=== PATIENT | male | born 1970 | race American Indian/Alaskan Native ===

== ENCOUNTER 2021-08-08 09:54 | Emergency (ER) | payer SELFPAY ==
[2021-08-08 10:01] VITALS: BP 140/100
--- NOTE | 2021-08-08 11:01 | Emergency Department Report ---
ED Chest Pain HPI - General Chief Complaint: Upper Respiratory Infection Stated Complaint: CHEST PAIN/DEEP INHALATION Time Seen by Provider: 08/08/21 10:56 Source: patient Mode of arrival: Ambulatory Limitations: No Limitations - Related Data Allergies Allergy/AdvReac Type Severity Reaction Status Date / Time trapidil Allergy Unknown Verified 08/08/21 09:59 Heart Score - HEART Score History: Slightly suspicious EKG: Normal Age: < 45 Risk factors: No known risk factors Troponin: < normal limit HEART Score: 0 ED Review of Systems ROS: Stated complaint: CHEST PAIN/DEEP INHALATION Other details as noted in HPI Comment: All other systems reviewed and negative ED Past Medical Hx - Past Medical History Previous Medical History?: Yes Hx Psychiatric Treatment: Yes Additional medical history: HYPERACTIVE THYROID WITH IO RAD TX OFF MEDS - Surgical History Past Surgical History?: Yes Additional Surgical History: KNEE - Family History Family history: no significant - Social History Smoking Status: Current Every Day Smoker Substance Use Type: Alcohol ED Physical Exam - General Limitations: No Limitations General appearance: alert, in no apparent distress - Head Head exam: Present: atraumatic, normocephalic - Eye Eye exam: Present: normal appearance - ENT ENT exam: Present: mucous membranes moist - Neck Neck exam: Present: normal inspection - Respiratory Respiratory exam: Present: normal lung sounds bilaterally. Absent: respiratory distress - Cardiovascular Cardiovascular Exam: Present: regular rate, normal rhythm. Absent: systolic murmur, diastolic murmur, rubs, gallop - GI/Abdominal GI/Abdominal exam: Present: soft, normal bowel sounds - Rectal Rectal exam: Present: deferred - Extremities Exam Extremities exam: Present: normal inspection - Back Exam Back exam: Present: normal inspection - Neurological Exam Neurological exam: Present: alert, oriented X3 - Psychiatric Psychiatric exam: Present: normal affect, normal mood - Skin Skin exam: Present: warm, dry, intact, normal color. Absent: rash ED Course Vital Signs 08/08/21 08/08/21 09:59 12:19 Pulse Rate 80 Respiratory 18 18 Rate Blood Pressure 140/100 [Right] O2 Sat by Pulse 97 94 Oximetry BRADLEY score - Bradley Score Age > 65: (0) No Aspirin use within the Past 7 Days: (0) No 3 or more CAD Risk Factors: (0) No 2 or more Angina events in past 24 hrs: (0) No Known CAD with more than 50% Stenosis: (0) No Elevated Cardiac Markers: (0) No ST Deviation Greater than 0.5mm: (0) No BRADLEY Score: 0 ED Medical Decision Making - EKG Data EKG shows normal: sinus rhythm Rate: normal - EKG Data When compared to previous EKG there are: no significant change Interpretation: no acute changes - Radiology Data Radiology results: report reviewed, image reviewed - Medical Decision Making SEE DOWN TIME FORMS Vital Signs 08/08/21 08/08/21 09:59 12:19 Pulse Rate 80 Respiratory 18 18 Rate Blood Pressure 140/100 [Right] O2 Sat by Pulse 97 94 Oximetry - Differential Diagnosis THYROID DISEASE OFF MEDS; MED REFILL Critical care attestation.: If time is entered above; I have spent that time in minutes in the direct care of this critically ill patient, excluding procedure time. ED Disposition Clinical Impression: Non-adherence to medical treatment, History of hyperthyroidism, Medication refill Disposition: 01 HOME / SELF CARE / HOMELESS Is pt being admited?: No Does the pt Need Aspirin: No Condition: Stable Referrals: SHADI CRANDALL MD [Staff Physician] - 3-5 Days Time of Disposition: 14:31
--- NOTE | 2021-08-08 11:31 | XRay Report ---
CHEST 2 VIEWS INDICATION: cough. COMPARISON: None FINDINGS: Support devices: None. Heart: Borderline heart size. Lungs/pleura: Pulmonary vasculature appears slightly prominent particularly in the lung bases. No co nsolidation, pleural effusion or pneumothorax. Additional findings: None. IMPRESSION: Borderline to mild cardiomegaly and pulmonary venous congestion. No CHF. Signer Name: Paul Hall Jr, MD Signed: 08/08/2021 11:26 AM Workstation Name: [id number]
--- NOTE | 2021-08-08 13:43 | Electrocardiograph Report ---
[facility] Test Date: 2021-08-08 Test Time: 11:06:54 Pat Name: STEPHY FOX Department: Room: Gender: M [employer] Bl[employer] Wet: CASSANDRA : 1970 Requested By: CHIP FAUST Order Number: [id number] Reading MD: Tessie Rousseau Measurements Intervals [place] Rate: 104 P: 72 MD: 165 QRS: -11 QRSD: 91 T: 32 QT: 378 QTc: 496 Interpretive Statements Incomplete analysis due to missing data in precordial lead(s) Sinus tachycardia Probable left atrial enlargement No previous ECG available for comparison Electronically Signed On 08-08-2021 13:42:42 EST by Tessie Rousseau
== END 2021-08-08 12:09 | disposition home or self-care (01) ==
LOC: ED 09:54
DX: Z91.19 Patient's noncompliance with other medical treatment and regimen (principal); Z76.0 Encounter for issue of repeat prescription; E05.90 Thyrotoxicosis, unspecified without thyrotoxic crisis or storm; F17.200 Nicotine dependence, unspecified, uncomplicated; Z88.8 Allergy status to other drugs, medicaments and biological substances; Z79.899 Other long term (current) drug therapy
CPT/HCPCS: 71046; 93005; 99283

== ENCOUNTER 2022-06-28 09:03 | Emergency (ER) | payer SELFPAY ==
--- NOTE | 2022-06-28 09:34 | Event Note ---
ED Screening Note Date of service: 06/28/22 Time: :31 ED Screening Note: This initial assessment/diagnostic orders/clinical plan/treatment(s) is/are subject to change based on patients health status, clinical progression and re- assessment by fellow clinical providers in the ED. Further treatment and workup at subsequent clinical providers discretion. Patient/guardian urged not to elope from the ED as their condition may be serious if not clinically assessed and managed. Allergic reaction to "Vern foot soap." in genital area, feet. Also elevated BP in triage. 151/109. Didn't take BP meds. Non-toxic appearing. Initial orders include:
[2022-06-28] MEDS ORDERED: dexAMETHasone 4 MG/ML VIAL IM ONE (12:26)
--- NOTE | 2022-06-28 13:58 | Emergency Department Report ---
- General Chief complaint: Skin Rash Stated complaint: BOIL Time Seen by Provider: 06/28/22 12:24 Source: patient Mode of arrival: Ambulatory Limitations: No Limitations - Related Data Previous Rx's Medication Instructions Recorded Last Taken Type Triamcinolone 0.025% (Nf) [Kenalog 1 applic TP TID #1 tube 06/28/22 Unknown Rx 0.025% OINT] Allergies Allergy/AdvReac Type Severity Reaction Status Date / Time trapidil Allergy Unknown Verified 06/28/22 09:35 Abscess Boil HPI - HPI Chief Complaint: Skin Rash Stated Complaint: BOIL Time Seen by Provider: 06/28/22 12:24 Home Medications: Previous Rx's Medication Instructions Recorded Last Taken Type Triamcinolone 0.025% (Nf) [Kenalog 1 applic TP TID #1 tube 06/28/22 Unknown Rx 0.025% OINT] Allergies/Adverse Reactions: Allergies Allergy/AdvReac Type Severity Reaction Status Date / Time trapidil Allergy Unknown Verified 06/28/22 09:35 ED Review of Systems ROS: Stated complaint: BOIL Other details as noted in HPI ED Past Medical Hx - Past Medical History Hx Psychiatric Treatment: Yes Additional medical history: HYPERACTIVE THYROID WITH IO RAD TX OFF MEDS - Surgical History Additional Surgical History: KNEE - Social History Smoking Status: Current Every Day Smoker Substance Use Type: Alcohol - Medications Home Medications: Home Medications Medication Instructions Recorded Confirmed Last Taken Type Triamcinolone 0.025% (Nf) [Kenalog 1 applic TP TID #1 tube 06/28/22 Unknown Rx 0.025% OINT] ED Physical Exam - General Limitations: No Limitations ED Course Vital Signs 06/28/22 09:31 Temperature 98.8 F Pulse Rate 82 Respiratory 18 Rate Blood Pressure 151/109 [Right] O2 Sat by Pulse 100 Oximetry Critical care attestation.: If time is entered above; I have spent that time in minutes in the direct care of this critically ill patient, excluding procedure time. ED Disposition Clinical Impression: Atopic dermatitis Disposition: 01 HOME / SELF CARE / HOMELESS Is pt being admited?: No Does the pt Need Aspirin: No Condition: Stable Instructions: Atopic Dermatitis Additional Instructions: Take medications as prescribed. Follow-up with dermatology as needed Prescriptions: Triamcinolone 0.025% (Nf) [Kenalog 0.025% OINT] 1 applic TP TID #1 tube Referrals: OLINDA BETANCUR MD [Staff Physician] - 3-5 Days Time of Disposition: 14:04
[2022-06-28 14:39] VITALS: BP 148/90
== END 2022-06-28 14:38 | disposition home or self-care (01) ==
LOC: ED 09:03
DX: L20.9 Atopic dermatitis, unspecified (principal); Z88.8 Allergy status to other drugs, medicaments and biological substances; Z79.899 Other long term (current) drug therapy
CPT/HCPCS: 96372; 99282; J1100